=== PATIENT | female | born 1995 | race African-American/Black ===

== ENCOUNTER 2021-10-22 16:26 | Observation (INO) | payer BC, SELFPAY ==
--- NOTE | ~2021-10-22 | US_ITS ---
EXAMINATION: US pelvic complete w TV DATE: 10/22/2021 20:52 INDICATION: Right pelvic pain. Evaluate for torsion. Comparison:CT dated 10/22/2021 TECHNIQUE: Multiple transabdominal and endovaginal sonographic images of the pelvis performed. FINDINGS: The uterus measures 8.6 x 4.2 x 5 cm. The endometrial complex measures 1.4 cm. There is a large complicated cyst measuring up to 11 cm inferior and to the right of the uterus measu res an isoechoic structure measuring 3.9 x 3.8 x 3.4 cm with internal vascularity the left ovary is n ot visualized. There is fluid in the posterior cul-de-sac. Centered in the right adnexa corresponding to the cyst seen on CT examination. This cyst contains septations and low-level internal echoes. The re is vascularity surrounding the cyst, possibly ovarian. Its difficult to evaluate normal ovarian ti ssue due to the complicated cysts. IMPRESSION: 1. Large complex right adnexal cyst measuring up to 11 cm with vascularity peripheral to the cystic c omponent. Differential diagnosis includes large complicated functional cyst, complicated hydrosalpinx , cystadenoma and cystadenocarcinoma. Isoechoic mass inferior and right of the uterus measuring up to 3.9 cm contains vascularity. This is of uncertain significance and may represent the actual ovary if indeed the cystic component is a hydrosalpinx. No definite evidence for torsion. Reviewed, dictated and finalized at location A. E PROJECT MANAGER IMPRESSION: 1. Large complex right adnexal cyst measuring up to 11 cm with vascularity ivis pheral to the cystic component. Differential diagnosis includes large complicat ed functional cyst, complicated hydrosalpinx, cystadenoma and cystadenocarcinom a. Isoechoic mass inferior and right of the uterus measuring up to 3.9 cm conta ins vascularity. This is of uncertain significance and may represent the actual ovary if indeed the cystic component is a hydrosalpinx. No definite evidence f or torsion.
--- NOTE | ~2021-10-22 | CT_ITS ---
EXAMINATION: CT abdomen pelvis w con DATE: 10/22/2021 18:58 INDICATION: Abdomen pain TECHNIQUE: Computed tomography (CT) of the abdomen and pelvis was performed with 100 cc Omnipaque 350 intravenous contrast. The dose-length product was 498.09 mGy-cm. Automated exposure control and iter ative reconstruction technique were employed. COMPARISON: None. FINDINGS: Lung bases are unremarkable. Heart size normal. No significant pleural or pericardial effus ion. There are multiple small subcentimeter low-density lesions in the liver, most likely cysts. No s ignificant vascular abnormality. No lymphadenopathy. There is a large complex cyst centered in the right adnexa measuring 11.2 x 12.6 x 6.8 cm with sports management internship al septations. There is free fluid in the pelvis. There is fluid in the endometrium which is mildly t hickened. Nonobstructive bowel gas pattern. The spleen, pancreas, adrenal glands and kidneys are unremarkable. Gallbladder is present. No acute o sseous abnormality. IMPRESSION: 1. Large complex septated right adnexal cyst measuring 12.6 x 11.2 x 6.8 cm. Differential diagnosis i ncludes large functional cysts and cystadenoma/cystadenocarcinoma. Small amount of free fluid in the pelvis. Reviewed, dictated and finalized at location A. C EXECUTIVE IMPRESSION: 1. Large complex septated right adnexal cyst measuring 12.6 x 11.2 x 6.8 cm. Di fferential diagnosis includes large functional cysts and cystadenoma/cystadenoc arcinoma. Small amount of free fluid in the pelvis.
[2021-10-22 16:30] VITALS: BP 131/81; PULSE 92; RESP 20; TEMP 36.7; O2SAT 100
--- NOTE | 2021-10-22 16:40 | ED.GENADULT ---
HPI - General Adult General Chief complaint: Abdominal Pain Stated complaint: abd pain Time Seen by Provider: 10/22/21 16:30 Source: RN notes reviewed History of Present Illness HPI narrative: Patient presents emergency department from home for abdominal pain. Patient states abdominal pain began at noon today pain is located across the lower abdomen bilaterally described as cramping in nature associate with nausea vomiting and diarrhea. Patient denies any fevers or chills chest pain shortness of breath or any other symptoms. States she took ibuprofen at home with no relief Related Data Allergies Allergy/AdvReac Type Severity Reaction Status Date / Time No Known Allergies Allergy Verified 10/22/21 18:21 Review of Systems Review of Systems: Gen.: Denies fevers or chills ENT: Denies congestion Respiratory: Denies shortness of breath or cough CV: Denies chest pain or palpitations GI: See HPI denies burning, urgency, frequency or hematuria Musculoskeletal: Denies back pain or muscle pain Neuro: Denies numbness, tingling, weakness or focal weakness Skin: Denies rash Except as documented, all other systems reviewed and negative [facility] Past Medical History Medical History (Updated 10/22/21 @ 21:37 by Valeriano Marroquin DO) Patient denies significant medical history Social History Social History (Updated 10/22/21 @ 16:41 by Valeriano Marroquin DO) Smoking status: Never smoker Exam Narrative: APPEARANCE: No acute distress, nontoxic, resting in bed HEENT: Normocephalic, atraumatic, OMM RESPIRATORY: No respiratory distress, clear to auscultation bilaterally with no rhonchi wheezing or rales CARDIOVASCULAR: RRR s murmur ABDOMINAL: Soft nondistended tender palpation diffusely with increased tenderness in right lower quadrant left lower quadrant no rebound or guarding : Normal external exam small amount of white vaginal discharge cervix is closed right adnexal tenderness no left adnexal tenderness no cervical motion tenderness MUSCULOSKELETAl: Moves all extremities. No clubbing, cyanosis or edema. NEURO: Awake and alert. Following commands, speech normal, no focal deficits SKIN:: Warm, dry. Normal Color PSYCHIATRIC: Normal affect/mood Course Course Emergency Course: Called and discussed with Dr. Ca presentation work-up at this time recommends admission to her service request patient started on clindamycin and gentamicin for possible PID is concerned of hydrosalpinx with white blood cell count elevated Discussed with patient and family results of workup and diagnosis. Discussed need for admission. Patient and family understand and agree to current treatment plan Vital Signs Vital signs: Vital Signs Temperature 98.0 F 10/22/21 16:30 Pulse Rate 92 10/22/21 16:30 Respiratory Rate 20 10/22/21 16:30 Blood Pressure 131/81 10/22/21 16:30 Pulse Oximetry 100 10/22/21 16:30 Temperature 98.0 F 10/22/21 16:30 Pulse Rate 90 10/22/21 21:17 Respiratory Rate 14 10/22/21 21:17 Blood Pressure 128/77 10/22/21 21:17 Pulse Oximetry 99 10/22/21 21:17 Medical Decision Making Vital Signs Vital Signs: Vital Signs Temperature 98.0 F 10/22/21 16:30 Pulse Rate 92 10/22/21 16:30 Respiratory Rate 20 10/22/21 16:30 Blood Pressure 131/81 10/22/21 16:30 Pulse Oximetry 100 10/22/21 16:30 Temperature 98.0 F 10/22/21 16:30 Pulse Rate 90 10/22/21 21:17 Respiratory Rate 14 10/22/21 21:17 Blood Pressure 128/77 10/22/21 21:17 Pulse Oximetry 99 10/22/21 21:17 Lab Data Result diagrams: 10/22/21 17:16 10/22/21 17:16 Labs: Lab Results 10/22/21 10/22/21 10/22/21 Range/Units 17:16 17:16 17:55 WBC 21.8 H (4.5-10.0) K/mm3 RBC 4.86 (4.2-5.4) M/mm3 Hgb 11.4 L (12.0-15.0) g/dL Hct 36.7 L (37.0-47.0) % MCV 75.5 L (80-100) fl MCH 23.5 L (26-34) pg MCHC 31.1 L (32-36) g/dl RDW 16.5 H (11.5-14.5) % P
[2021-10-22] MEDS: ONDANSETRON INJ 4 MG/2 ML VIAL IV PUSH (17:12)
[2021-10-22] MEDS: SODIUM CHLORIDE 0.9% IV 1,000 ML 999 ML IV CONT (17:12)
[2021-10-22 17:22] LABS: Basophils Absolute Auto 0.1 K/mm3 (0.0-0.1); Basophils Percent Auto 0.3 % (0.2-1.2); Hematocrit 36.7 % (37.0-47.0); Hemoglobin 11.4 g/dL (12.0-15.0); Immature Granulocyte Absolute 0.12 K/mm3 (0.00-0.031); Immature Granulocyte Percent A 0.5 % (0-0.5); Lymphocytes Absolute Auto 0.79 K/mm3 (0.9-3.2); Lymphocytes Percent Auto 3.6 % (18.3-44.2); Mean Corpuscular HGB Conc 31.1 g/dl (32-36); Mean Corpuscular Hemoglobin 23.5 pg (26-34); Mean Corpuscular Volume 75.5 fl (80-100); Monocytes Absolute Auto 1.2 K/mm3 (0.1-0.6); Monocytes Percent Auto 5.3 % (2.6-8.5); Neutrophils Absolute Auto 19.7 K/mm3 (1.3-6.7); Neutrophils Percent Auto 90.3 % (45.5-73.1); Platelet Count Result 394 k/mm3 (150-375); Red Blood Count 4.86 M/mm3 (4.2-5.4); Red Cell Distribution Width 16.5 % (11.5-14.5); White Blood Count 21.8 K/mm3 (4.5-10.0)
[2021-10-22 17:32] LABS: Alanine Aminotransferase 16 U/L (4-35); Albumin Level 4.7 g/dL (3.5-5.1); Alkaline Phosphatase 62 U/L (38-126); Anion Gap 9 mmol/L (8-16); Aspartate Amino Transferase 26 U/L (14-36); Bilirubin,Total 0.4 mg/dL (0.2-1.3); Blood Urea Nitrogen 14 mg/dL (7-17); Calcium 9.8 mg/dL (8.4-10.2); Carbon Dioxide 28 mmol/L (22-30); Chloride 99 mmol/L (98-107); Estimated CRCL calculation 125 ml/min; Estimated Glomerular Filt Rate > 60; Glucose 152 mg/dL (65-110); Lipase 34 U/L (23-300); Potassium 3.7 mmol/L (3.4-5.0); Sodium 136 mmol/L (137-145)
[2021-10-22 18:07] LABS: Add Urine Microscopic? YES; Appearance Urine Cloudy (Clear); Bilirubin Urine Negative (Negative); Color Urine Yellow (Yellow); Glucose Urine UA Negative (Negative); Ketones Urine 1+ mg/dL (Negative); Leukocyte Esterase Ur Trace LEU/UL (Negative); Mucus Urine Heavy /lpf; Nitrate Urine Negative (Negative); Protein Urine 1+ mg/dL (Negative); RBC Urine 0-2 /hpf (0-2); Squamous Epithelial Cell Urine Many /hpf (Few); Urobilinogen Urine Negative mg/dL (<2.0); WBC Urine 16-20 /hpf
[2021-10-22 18:14] LABS: Pregnancy On Board Control Positive; Urine Pregnancy Test Negative
[2021-10-22 18:15] LABS: Blood Urine Negative (Negative); Specific Grav Ur 1.035 (1.001-1.035)
[2021-10-22] MEDS: MORPHINE SULFATE (*CRX) 2 MG/ML INJ IV PUSH (19:31)
[2021-10-22 19:34] VITALS: BP 133/78; PULSE 83; RESP 16; O2SAT 100
[2021-10-22 21:17] VITALS: BP 128/77; PULSE 90; RESP 14; O2SAT 99
[2021-10-22 21:45] LABS: Lactic Acid Reflex 1.3 mmol/L (0.7-2.1)
[2021-10-22] MEDS: GENTAMICIN SULFATE INJ 320 MG in DEXTROSE 5% 100 ML 100 MG IVPB (21:45)
--- NOTE | 2021-10-22 22:29 | ADMGEN ---
This patient, Atif Beasley, was admitted to Medical Room 255-01. Patient/family oriented to hospital policies and general routines including ID bracelet, bed and alarms, visiting hours, pain management, procedures, bathroom and other care routines, personal items, smoking policy, room service/diet, and visiting hours. Information on how to activate the Rapid Response Team has been discussed. Patient/Family are encouraged to report perceived risks to care and to ask questions if they do not understand what they are told or what they should do.
[2021-10-22 22:41] VITALS: PULSE 90; RESP 14; O2SAT 99
[2021-10-22] MEDS: CLINDAMYCIN 900 MG/D5W 50 ML 900 MG/50 ML PIGGYBACK 50 MG IVPB (22:43)
[2021-10-22] MEDS: MORPHINE SULFATE (*CRX) 4 MG/ML INJ IV PUSH (22:48)
[2021-10-22] MEDS: SODIUM CHLORIDE 0.9% IV 1,000 ML 125 ML IV CONT (22:48)
[2021-10-22 23:24] VITALS: BP 114/59; PULSE 100; RESP 14; TEMP 36.3; O2SAT 100
[2021-10-23] MEDS: CLINDAMYCIN 900 MG/D5W 50 ML 900 MG/50 ML PIGGYBACK 50 MG IVPB ×3 (05:32→21:24)
[2021-10-23 05:55] VITALS: BP 104/50; PULSE 104; RESP 14; TEMP 36.4; O2SAT 99
[2021-10-23 06:01] LABS: Basophils Percent Auto 0.2 % (0.2-1.2); Hematocrit 30.8 % (37.0-47.0); Hemoglobin 9.6 g/dL (12.0-15.0); Immature Granulocyte Absolute 0.13 K/mm3 (0.00-0.031); Immature Granulocyte Percent A 0.7 % (0-0.5); Lymphocytes Absolute Auto 1.37 K/mm3 (0.9-3.2); Lymphocytes Percent Auto 7.4 % (18.3-44.2); Mean Corpuscular HGB Conc 31.2 g/dl (32-36); Mean Corpuscular Volume 73.7 fl (80-100); Mean Platelet Volume 10.7 fl (7.4-10.4); Monocytes Absolute Auto 1.5 K/mm3 (0.1-0.6); Monocytes Percent Auto 7.8 % (2.6-8.5); Neutrophils Absolute Auto 15.6 K/mm3 (1.3-6.7); Neutrophils Percent Auto 83.9 % (45.5-73.1); Platelet Count Result 369 k/mm3 (150-375); Red Blood Count 4.18 M/mm3 (4.2-5.4); Red Cell Distribution Width 16.8 % (11.5-14.5); White Blood Count 18.6 K/mm3 (4.5-10.0)
[2021-10-23 06:07] LABS: Alanine Aminotransferase 13 U/L (4-35); Albumin Level 3.8 g/dL (3.5-5.1); Alkaline Phosphatase 45 U/L (38-126); Anion Gap 5 mmol/L (8-16); Aspartate Amino Transferase 20 U/L (14-36); Bilirubin,Total 0.5 mg/dL (0.2-1.3); Blood Urea Nitrogen 10 mg/dL (7-17); Calcium 8.5 mg/dL (8.4-10.2); Carbon Dioxide 27 mmol/L (22-30); Chloride 102 mmol/L (98-107); Estimated CRCL calculation 125 ml/min; Estimated Glomerular Filt Rate > 60; Glucose 111 mg/dL (65-110); Potassium 3.6 mmol/L (3.4-5.0); Sodium 134 mmol/L (137-145)
[2021-10-23] MEDS: MORPHINE SULFATE (*CRX) 4 MG/ML INJ IV PUSH ×2 (06:27→12:31)
[2021-10-23] MEDS: SODIUM CHLORIDE 0.9% IV 1,000 ML 125 ML IV CONT ×2 (07:50→17:02)
--- NOTE | 2021-10-23 09:24 | PM.IMHP ---
H&P: HPI History of Present Illness Date/Time: 10/23/21 09:24 26 y/o G1 LMP 10/07/2021 came to ER yesterday evening for c/o severely worsening pelvic pain in LLQ. She reports 2 year h/o pelvic pain, usually in RLQ, lasting 1-2 days after each menstrual cycle then resolves. That pain is mild to moderate. The pain yesterday was much more severe than anything she's ever experienced and is constant. She had nausea yesterday and emesis three times. She had Thanksgiving dinner with her family and did nothing strenuous yesterday. She has periods Q3-4 weeks lasting 5-7 days. She has one partner and uses condoms for contraception. She denies any h/o STDs or abnormal pap Med Hx: acne Meds: spironolactone and doxycycline for acne All: sulfa Surg: sty from eye Soc: no T/E/D, works as nurse at [employer] Ob: G0 Marketing Intelligence Analyst: denies abnormal pap (only had one ever) or STD Chief Complaint: pelvic pain Review of Systems Review of Systems: All systems reviewed & are unremarkable except as noted in HPI and below PMFSH Past Medical History Medical History (Updated 10/23/21 @ 09:33 by Kesha Ca MD) Patient denies significant medical history Family History Family History (Updated 10/22/21 @ 22:33 by Elizabeth Reyes RN) Other Unknown family medical history Social History Social History (Updated 10/22/21 @ 16:41 by Valeriano Marroquin DO) Smoking status: Never smoker Alcohol intake: never Substance use: never Spiritual care concerns: No Meds Home Medications and Allergies Home Medications Medication Instructions Recorded Confirmed Type spironolactone 100 mg PO DAILY 10/22/21 10/22/21 History Allergies Allergy/AdvReac Type Severity Reaction Status Date / Time Sulfa (Sulfonamide Allergy Unknown Unknown Verified 10/22/21 23:02 Antibiotics) Vital Signs Vital Signs - 24 hr 10/22/21 16:30 10/22/21 19:34 10/22/21 21:17 Temperature 36.7 C Pulse Rate 92 83 90 Respiratory Rate 20 16 14 Blood Pressure 131/81 133/78 128/77 Pulse Oximetry 100 100 99 10/22/21 22:41 10/22/21 23:24 10/23/21 05:55 Temperature 36.3 C L 36.4 C L Pulse Rate 90 100 104 H Respiratory Rate 14 14 14 Blood Pressure 114/59 L 104/50 L Pulse Oximetry 99 100 99 Exam Const: General: healthy appearing, no acute distress, well developed, alert and awake Resp: Auscultation: clear to auscultation bilaterally Cardio: Rate: regular rate Rhythm: regular rhythm GI: Inspection: non-distended GI Palp: Yes Soft to palpation, Yes Tenderness to palpation present (GI) (diffuse below umbilicus, LLQ worst. No guarding), No Palpable mass present (no palpable mass) and No Rebound tenderness present Auscultation: normal bowel sounds Back/Spine/Pelvis: Back: no CVA tenderness Extrem: General: no calf tenderness and no edema Psych: Mental Status: mental status grossly normal H&P: Results Labs Labs: Short CBC 10/22/21 10/23/21 Range/Units 17:16 05:24 WBC 21.8 H 18.6 H (4.5-10.0) K/mm3 Hgb 11.4 L 9.6 L (12.0-15.0) g/dL Hct 36.7 L 30.8 L (37.0-47.0) % Plt Count 394 H 369 (150-375) k/mm3 BMP 10/22/21 10/23/21 17:16 05:24 Sodium 136 L 134 L Potassium 3.7 3.6 Chloride 99 102 Carbon Dioxide 28 27 BUN 14 10 Creatinine 0.60 L 0.60 L Glucose 152 H 111 H Calcium 9.8 8.5 Liver Function 10/22/21 10/23/21 Range/Units 17:16 05:24 Total Bilirubin 0.4 0.5 (0.2-1.3) mg/dL AST 26 20 (14-36) U/L ALT 16 13 (4-35) U/L Alkaline Phosphatase 62 45 (38-126) U/L Albumin 4.7 3.8 (3.5-5.1) g/dL Urine 10/22/21 Range/Units 17:55 Urine Color Yellow (Yellow) Urine Appearance Cloudy H (Clear) Urine pH 5.0 (5.0-9.0) Ur Specific [place] 1.035 (1.001-1.035) Urine Protein 1+ H (Negative) mg/dL Urine Glucose (UA) Negative (Negative) mg/dL Assessment and Plan Assessment and plan (1) Acute pelvic inflammatory disease (PID): Code
[2021-10-23] MEDS: HYDROcodone/acetaminophen (*CRX) 5-325 MG TABLET 2 TAB PO ×2 (09:41→19:55)
[2021-10-23 10:03] LABS: Gentamicin Random < 0.6 ug/mL (5.0-12.0)
--- NOTE | 2021-10-23 10:34 | PCCCNOTE ---
On 10/23/21, the student, [Aziza Monteiro ], provided care and [email or web address]. I have reviewed the student's documentation and agree with the findings.
[2021-10-23 14:29] VITALS: BP 121/65; PULSE 91; RESP 20; TEMP 36.3; O2SAT 10
[2021-10-23] MEDS: HYDROcodone/acetaminophen (*CRX) 5-325 MG TABLET 1 TAB PO (16:00)
[2021-10-23] MEDS: GENTAMICIN SULFATE INJ 320 MG in DEXTROSE 5% 100 ML 100 MG IVPB (19:56)
[2021-10-23 21:28] VITALS: BP 129/61; PULSE 100; RESP 14; TEMP 36.6; O2SAT 96
[2021-10-24] MEDS: SODIUM CHLORIDE 0.9% IV 1,000 ML 125 ML IV CONT (02:56)
[2021-10-24] MEDS: HYDROcodone/acetaminophen (*CRX) 5-325 MG TABLET 2 TAB PO (02:57)
[2021-10-24] MEDS: CLINDAMYCIN 900 MG/D5W 50 ML 900 MG/50 ML PIGGYBACK 50 MG IVPB (05:02)
[2021-10-24 06:00] VITALS: BP 124/57; PULSE 100; RESP 14; TEMP 36.8; O2SAT 97
--- NOTE | 2021-10-24 10:11 | PM.GYNPNOP ---
ANCHORER - A/P Assessment and plan (1) Acute pelvic inflammatory disease (PID): Code(s): N73.0 - Acute parametritis and pelvic cellulitis Status: Acute Assessment and Plan: Clinically improving on IV antibiotics and would like to go home. Discharge home with another 12 days oral antibiotics. Follow up in the office with me within 1 week. Stay off work until then. I advised her to call if fever >101, N/V to the point she cannot keep down medications, worsening pain, or any other concerning symptoms. She expressed understanding and agrees. (2) TOA (tubo-ovarian abscess): Code(s): N70.93 - Salpingitis and oophoritis, unspecified Status: Acute (3) UTI (urinary tract infection): Code(s): N39.0 - Urinary tract infection, site not specified Status: Acute Assessment and Plan: + UTI Group B streptococcus, which is generally sensitive to amoxicillin so will add that to discharge antibiotics Time Spent With Patient Time: Total time spent is greater than 50% in coordination of care (as documented) at patient's floor/unit and/or counseling patient: Time with patient: 15 - 25 minutes ANCHORER- PN:Subj Post-Op Subjective Date/time seen: 10/24/21 10:11 She is feeling much better today. Tolerating regular diet and oral pain medication, which is helping. Pain hs improved. No N/V. No new complaints. No CP, SOB, dizziness. Review of Systems Review of Systems: All systems reviewed & are unremarkable except as noted in HPI and below Exam Const: General: healthy appearing, no acute distress, alert and awake Resp: Auscultation: clear to auscultation bilaterally Cardio: Rate: regular rate Rhythm: regular rhythm GI: Inspection: non-distended GI Palp: Yes Soft to palpation, Yes Tenderness to palpation present (GI) (below umbilicus, L>R but slightly less than yesterday), No Guarding due to palpation present (GI) and No Rebound tenderness present Auscultation: normal bowel sounds Extrem: General: no calf tenderness and no edema Psych: Mental Status: mental status grossly normal ANCHORER - PN: Obj Data Vital Signs Vital Signs: Vital Signs - 24 hr 10/23/21 14:29 10/23/21 21:28 10/24/21 06:00 Temperature 36.3 C L 36.6 C 36.8 C Pulse Rate 91 100 100 Respiratory Rate 20 14 14 Blood Pressure 121/65 129/61 124/57 L Pulse Oximetry 10 L 96 97 Intake/Output Intake/Output: Intake & Output 10/21/21 10/22/21 10/23/21 10/24/21 23:59 23:59 23:59 23:59 Intake Total 1100 2416 1050 Output Total 450 1000 Balance 1100 1966 50 Meds/Results Medications: Active Medications Generic Name Dose Route Start Last Admin Trade Name Freq PRN Reason Stop Dose Admin Hydrocodone Bitart/Acetaminophen 1 tab 10/23/21 09:34 10/23/21 16:00 Hydrocodone/Acetaminophen (*Crx) 5-325 Mg Tablet PO 1 tab Q4H PRN Administration Pain Rated 4-6 Hydrocodone Bitart/Acetaminophen 2 tab 10/23/21 09:34 10/24/21 02:57 Hydrocodone/Acetaminophen (*Crx) 5-325 Mg Tablet PO 2 tab Q4H PRN Administration Pain Rated 7-10 Sodium Chloride 1,000 mls @ 125 mls/hr 10/22/21 21:20 10/24/21 02:56 Normal Saline Iv IV CONT 125 mls/hr .Q8H ANGEL Administration Clindamycin Phosphate 900 mg in 50 mls @ 50 mls/hr 10/23/21 06:00 10/24/21 06:02 Cleocin 900 Mg/D5w 50 Ml IVPB Infused Q8H ANGEL Infusion Gentamicin Sulfate 320 mg/ 108 mls @ 100 mls/hr 10/23/21 21:00 10/23/21 21:01 Dextrose IVPB Infused Q24H ANGEL Infusion Ibuprofen 600 mg 10/23/21 09:34 Ibuprofen 600 Mg Tablet PO Q6H PRN Cramping Morphine Sulfate 4 mg 10/22/21 21:16 10/23/21 12:31 Morphine Sulfate (*Crx) 4 Mg/Ml Inj IV PUSH 4 mg Q2H PRN Administration Pain Rated 7-10 Ondansetron HCl 4 mg 10/22/21 21:16 Ondansetron Inj 4 Mg/2 Ml Vial IV PUSH Q4H PRN Nausea Radiology Results: ITS Impressions Abdomen/Pelvis CT 10/22/21 19:00 IMPRESSION: 1. Large complex septated ri
--- NOTE | 2021-10-24 10:16 | PM.DS ---
DS: Admitting Diagnosis Discharge Date 10/24/2021 Admitting Diagnosis PID, adnexal mass, pelvic pain DS: Discharge Diagnosis Discharge Diagnosis (1) Acute pelvic inflammatory disease (PID): Code(s): N73.0 - Acute parametritis and pelvic cellulitis Status: Acute (2) TOA (tubo-ovarian abscess): Code(s): N70.93 - Salpingitis and oophoritis, unspecified Status: Acute (3) UTI (urinary tract infection): Code(s): N39.0 - Urinary tract infection, site not specified Status: Acute (4) Pelvic pain: Code(s): R10.2 - Pelvic and perineal pain Status: Acute DS: Summary Hospital Course Reason for hospitalization: pelvic pain, adnexal mass, PID Hospital Course: Patient is 26 years old G0 with last menstrual period of October 07, 2021 came to the emergency room the evening of October 22 complaining of severely worsening lower abdominal pain. She initially had a CT scan and pelvic ultrasound showing a large right adnexal mass complex cystic and pleural, possibly hydrosalpinx versus ovarian in origin. She also had an elevated white blood cell count. She was admitted for suspected PID and treated with IV gentamicin and clindamycin starting on the evening of October 22. She was feeling somewhat better on October 23. She had been kept NPO overnight on the with potential plan for surgical management. The patient and I agreed to Willy continue medical therapy and observation. So she was allowed to eat and switched over to oral pain medication on October 23. She is feeling better on the morning of October 24. She is tolerating regular diet as well as oral pain medication. Her pain has improved and is well controlled on oral ibuprofen and [place]. She has remained afebrile throughout her hospital stay. Her vital signs are otherwise normal. She is being discharged home with plan to follow up with me with in office within the next week and to stay off work until she sees me back. We will plan to complete a 14 day course of oral antibiotics for PID as well as a course of amoxicillin for a UTI based on urine culture that grew group B Streptococcus here in the hospital. Status at Discharge Functional status at discharge: independent ambulation Overall status at discharge: patient is progressing back to baseline Time Spent with Patient Time attestation: Total time spent providing and/or coordinating discharge services: Time spent: Less than 30 minutes DS: Data Data Completed and Pending Labs on day of discharge: Preliminary micro results at discharge 10/22/21 21:29 Blood Culture - Preliminary Blood 10/22/21 21:29 Blood Culture - Preliminary Blood Discharge Plan Discharge Attending physician on discharge: Kesha Ca Discharging Clinician: Kesha Ca Patient Disposition: Home, Self-Care Activity: may shower and pelvic rest Diet: as tolerated Patient Instructions: Antibiotic Form Stand Alone Forms: General Discharge Information, Work/School Release IP Follow-up/Referrals: Kesha Ca MD [Physician] - 1 Week Discharge Medications: New hydrocodone-acetaminophen 5-325 mg Tablet 1 tablet PO Q4H PRN (Reason: Pain Rated 4-6) Qty: 30 RF: 0 amoxicillin 500 mg capsule 500 mg PO Q12H Qty: 14 RF: 0 doxycycline hyclate 100 mg capsule 100 mg PO Q12H Qty: 24 RF: 0 metronidazole 500 mg tablet 500 mg PO Q12H Qty: 24 RF: 0 ibuprofen 600 mg tablet 600 mg PO Q6H PRN (Reason: pain) Qty: 60 RF: 0 Continued spironolactone 100 mg Tablet 100 mg PO DAILY RF: 0 Date of admission: 10/22/21 21:16 Primary Care Provider: PHYSICIAN,BRICKMASON CONTRACTOR Admitting Provider: Kesha Ca Attending physician on admission: Kesha Ca Condition: Stable
== END 2021-10-24 13:18 | disposition home or self-care (01) ==
LOC: ANHED 21:37 → ANH2MED 21:49
PROVIDERS: Admitting Provider Obstetrics & Gynecology; Emergency Provider Emergency Medicine; Visit Provider Obstetrics & Gynecology
DX: N73.0 Acute parametritis and pelvic cellulitis (principal); N70.93 Salpingitis and oophoritis, unspecified; N39.0 Urinary tract infection, site not specified; R10.2 Pelvic and perineal pain
CPT/HCPCS: 36415; 74177; 76830; 76856; 80053; 80170; 81001; 81025; 83605; 83690; 85025; 87040; 87070; 87077; 87086; 87088; 87491; 87591; 87808; 96361; 96365; 96366; 96367; 96368; 96375; 96376; 99285; A9270; G0378; J0131; J1580; J2270; J2405; J7030; Q9967

== ENCOUNTER 2021-10-29 11:21 | Outpatient (CLI) | payer BC, SELFPAY ==
[2021-10-29 21:01] LABS: HIV 1/2 Ab P24 Ag Result Negative (Negative)
[2021-10-29 21:07] LABS: Hepatitis B Surface Antigen Negative (Negative)
[2021-10-29 21:08] LABS: Hepatitis C Virus Antibody Negative (Negative)
[2021-10-29 21:22] LABS: Rubella IgG Antibody > 110.0 IU/ML
[2021-10-30 06:39] LABS: Rapid Plasma Reagin Non-Reactive (NonReactive)
== END 2021-10-29 11:22 | disposition home or self-care (01) ==
LOC: ANHBWCLAB 11:23
PROVIDERS: Visit Provider Obstetrics & Gynecology
DX: Z11.3 Encounter for screening for infections with a predominantly sexual mode of transmission (principal)
CPT/HCPCS: 36415; 86592; 86695; 86696; 86703; 86762; 86803; 87340; G0432

== ENCOUNTER 2021-12-08 10:16 | Outpatient (CLI) | payer BC, SELFPAY ==
--- NOTE | ~2021-12-08 | US_ITS ---
EXAMINATION: US pelvic complete w TV EXAM DATE: 12/08/2021 11:20 INDICATION: Follow up abdominal pain TECHNIQUE: Pelvic transabdominal and transvaginal sonogram was performed. There are multiple graysca le and Doppler images available for interpretation. Comparison is made to prior examination from 09/29. FINDINGS: Uterus measures 8.6 x 4.7 x 4.2 cm, is anteverted and morphologically normal. Endometrial stripe measures 17 mm, upper limits of normal. There is small to moderate free pelvic fluid. Right adnexa: Again there is complex cystic right ovarian mass, region 11 cm. Low-level hypoechoic fl uid. Mass is exophytically extending off the right ovary. Low resistance Doppler flow is confirmed, n o right ovarian torsion. Left adnexa: The ovary measures 3.0 x 1.6 x 1.2 cm and is morphologically normal. Ovarian vascular fl ow confirmed. IMPRESSION: Complex cystic right ovarian 12 cm mass unchanged, with differential diagnosis including endometrioma, cystic ovarian neoplasm (including malignancy). Small to moderate pelvic fluid. Conside r histologic correlation. Reviewed, dictated and finalized at location A. NING CUSTODIAN IMPRESSION: Complex cystic right ovarian 12 cm mass unchanged, with differentia l diagnosis including endometrioma, cystic ovarian neoplasm (including malignan cy). Small to moderate pelvic fluid. Consider histologic correlation.
== END 2021-12-08 10:17 | disposition home or self-care (01) ==
PROVIDERS: Visit Provider Obstetrics & Gynecology
DX: R10.9 Unspecified abdominal pain (principal); Z11.3 Encounter for screening for infections with a predominantly sexual mode of transmission; N83.201 Unspecified ovarian cyst, right side
CPT/HCPCS: 76830; 76856

== ENCOUNTER 2021-12-09 08:36 | Outpatient (CLI) | payer BC, SELFPAY ==
[2021-12-12 01:30] LABS: CA-125 26 U/mL (<35)
== END 2021-12-09 08:37 | disposition home or self-care (01) ==
LOC: ANHBWCLAB 08:38
PROVIDERS: Visit Provider Obstetrics & Gynecology
DX: N83.8 Other noninflammatory disorders of ovary, fallopian tube and broad ligament (principal)
CPT/HCPCS: 36415; 86304

== ENCOUNTER 2021-12-18 16:24 | Emergency (ER) | payer BC, SELFPAY ==
[2021-12-18 16:33] VITALS: BP 120/65; PULSE 103; RESP 16; TEMP 36.2; O2SAT 99
--- NOTE | 2021-12-18 16:41 | ED.URI ---
HPI - URI/Sore Throat General Chief Complaint: Upper Respiratory Infection Stated Complaint: SORE THROAT Time Seen by Provider: 12/18/21 16:41 Source: patient, RN notes reviewed and old records reviewed Mode of arrival: ambulatory Limitations: no limitations History of Present Illness HPI Narrative: 26 year old female who presents to [facility] care with complaints of white lesions to her tonsils for the past 2 days with some tenderness to her glands in her neck. Patient denies acute pain with swallowing but states that she feels like her tonsils are swollen. Patient denies any cough or any known fevers chills or sweats, reports that she has had COVID and flu immunizations. She states that she is able to eat and drink with no acute problems. MD elicited complaint: sore throat Related Data Home Medications Medication Instructions Recorded Confirmed spironolactone 100 mg PO DAILY 10/22/21 12/15/21 Allergies Allergy/AdvReac Type Severity Reaction Status Date / Time Sulfa (Sulfonamide Allergy Unknown Rash, Verified 12/15/21 10:28 Antibiotics) swelling Review of Systems Review of Systems: CONSTITUTIONAL: Denies fever, chills, or sweats. EYES: Denies visual changes, redness, or discharge. ENT: Denies rhinorrhea, congestion, positive for swollen tonsils with lesions, no otalgia. CARDIOVASCULAR: Denies chest pain, palpitations, or edema. RESPIRATORY: Denies cough or dyspnea. GASTROINTESTINAL: Denies abdominal pain, nausea, vomiting, or diarrhea. GENITOURINARY: Denies dysuria or hematuria. SKIN: Denies rash or itching. MUSCULOSKELETAL: Denies back pain, joint pain, or myalgia. NEUROLOGIC: Denies headache, numbness, or weakness. PSYCHIATRIC: Denies anxiety or depression. All systems reviewed & are unremarkable except as noted in HPI and below PMFSH Past Medical History Medical History (Updated 12/18/21 @ 16:57 by Jovanna Pan NP) Acne Acute pelvic inflammatory disease (PID) Hydrosalpinx Pelvic pain Right ovarian cyst TOA (tubo-ovarian abscess) Surgical History Surgical History No pertinent past surgical history Family History Family History Father Hypertension Mother Hypertension Anxiety and depression Heart disease Grandparent Anxiety and depression Heart disease Cerebrovascular accident Thyroid disorder Grandparent Hypertension Thyroid disorder Social History Social History Smoking status: Never smoker Alcohol intake: never Substance use: never Spiritual care concerns: No Agree to blood products: Yes Comments At time of signature, agree with nursing past medical, surgical, social and family history. There is no relevant family history pertinent to the presenting complaint Exam Narrative: GENERAL: Well-appearing, well-nourished, and in no acute distress. HEAD: Normocephalic, atraumatic. EYES: PERRLA and EOMI. ENT: Nares clear, no rhinorrhea or epistaxis. Mucous membranes moist.TM's normal with good light reflex, throat red with tonsils enlarged and white lesions to both tonsils NECK: Supple. positive for lymphadenopathy CHEST: Clear to auscultation. No respiratory distress. no cough or dyspnea notedSAO2 99% on room air. HEART: Regular rate and rhythm. No murmur heard. Normal peripheral pulses. ABDOMEN: Soft, nontender, nondistended, normal active bowel sounds. EXTREMITIES: Normal range of motion. No edema. SKIN: Warm, dry, no rash. NEURO: No focal deficits. Alert and oriented x3. Course Course Level of Care: Express Care Visit Vital Signs Vital signs: Vital Signs Temperature 36.2 C L 12/18/21 16:33 Pulse Rate 103 H 12/18/21 16:33 Respiratory Rate 16 12/18/21 16:33 Blood Pressure 120/65 12/18/21 16:33 Pulse Oximetry 99 12/18/21 16:33 Temperature 36.2 C L 12/18/21 16:33 Pulse Rate 103
== END 2021-12-18 17:06 | disposition home or self-care (01) ==
PROVIDERS: Emergency Provider Registered Nurse
DX: J03.90 Acute tonsillitis, unspecified (principal)
CPT/HCPCS: 87081; 87880; 99213; G0463

== ENCOUNTER 2022-01-21 07:50 | Outpatient (CLI) | payer BC, SELFPAY | END 2022-01-21 07:51 | disposition home or self-care (01) | LOC: ANHSURGERY 07:54 | PROVIDERS: Visit Provider Obstetrics & Gynecology | DX: N94.89 Other specified conditions associated with female genital organs and menstrual cycle (principal); Z01.818 Encounter for other preprocedural examination | CPT/HCPCS: 36415; 86850; 86900; 86901 ==

== ENCOUNTER 2022-01-25 00:30 | Day surgery (SDC) | payer BC, SELFPAY ==
[2022-01-20 09:15] VITALS: BMI 30.2
--- NOTE | 2022-01-20 09:24 | PC.NURSE ---
Report to the Outpatient Waiting Room, entrance under the green pavilion located off [facility], at time 10:00 on date 01/25/22. OR Time: 12:00. - You and your visitor will be asked a series of questions to screen for COVID 19 for your protection. - A mask is required within the hospital. One visitor will be allowed to accompany the patient into the hospital. Patients visitor will be instructed to remain with patient at all times or leave the building. We will allow the visitor to come back to the postoperative area when patient is ready. Preoperative COVID Testing Requirements: No COVID Test needed if: (proof is required; if not received patient will have Rapid Test prior to entry) - Patient has received COVID Vaccine at least 14 days prior to procedure date or - Patient has positive COVID test result within last 90 days of surgery date. COVID Test needed if above criteria is not met Patients may have clear liquids (water, carbonated beverages, clear teas, apple juice) until 3 hours prior to surgery (9:00) with a maximum of 20 ounces. - No food from midnight until time of surgery Take the following medications with a SIP of water the morning of surgery: NONE Medications to discontinue per physician: VITAMINS/SUPPLEMENTS Date to take last dose: 01/21/22 Please no make-up, nail rwandan, hairspray, perfume, deodorant, or body powder the day of surgery. No jewelry (including any body piercings) or valuables the day of surgery, leave them at home. Please take a shower or bath the night before, or the morning of, surgery with an antibacterial soap. Wear comfortable, loose fitting clothing. - Jewelry must be removed prior to entering the operating room. Rings and piercings that are not removed may be cut off. - The hospital will not accept responsibility for valuables. - Please leave all valuables, including medications, at home the day of surgery. If you are going home after surgery, a licensed driver license reviewing officer must drive you home. - NO public transportation without another adult. - We recommend that an adult stay with you for 24 hours following discharge. - We also recommend that you do not drive, make important decision, drink alcoholic beverages, or take any drugs that were not prescribed by your health care provider for at least 24 hours after your discharge time. Follow any additional instructions given to you from your surgeon. Telephone instructions given to ROGELIO MCLAIN and asked if any additional questions and then verbalized understanding. Patient advised to call surgeon office or pre surgery nurse liaison [phone] if any additional questions.
[2022-01-25] VITALS (8 sets, daily range): BP systolic 101–123; BP diastolic 56–83; PULSE 57–84; RESP 14–16; TEMP 36.1; O2SAT 93–100
--- NOTE | 2022-01-25 09:05 | P.HP_ITS ---
H&P: HPI History of Present Illness Date/Time: 01/25/22 09:05 27 y/o with persistent large right adnexal cystic m ass. She was admitted 10/22 - 10/24/2021 for pain and antibiotics for possible TOA/PID. Mass did not improve with repeat U/S. She has intermitten RLQ pain for which she takes Advil. She has monthly cycles with no unusual discharge or new partner. Chief Complaint: Right adnexal mass, pelvic pain Review of Systems Review of Systems: All systems reviewed & are unremarkable except as noted in HPI and below PMFSH Past Medical History Medical History Acne Acute pelvic inflammatory disease (PID) Hydrosalpinx Right ovarian cyst TOA (tubo-ovarian abscess) Surgical History Surgical History No pertinent past surgical history Family History Family History Father Hypertension Mother Hypertension Anxiety and depression Heart disease Grandparent Anxiety and depression Heart disease Cerebrovascular accident Thyroid disorder Grandparent Hypertension Thyroid disorder Social History Social History Smoking status: Never smoker Alcohol intake: never Substance use: never Substance use type: does not use Living arrangements: with family Spiritual care concerns: No Agree to blood products: Yes Meds Home Medications and Allergies Home Medications Medication Instructions Recorded Confirmed Type spironolactone 100 mg PO DAILY 10/22/21 01/20/22 History multivitamin 1 tablet PO DAILY 01/20/22 01/20/22 History Allergies Allergy/AdvReac Type Severity Reaction Status Date / Time Sulfa (Sulfonamide Allergy Unknown Rash, Verified 01/12/22 08:55 Antibiotics) swelling Exam Const: General: healthy appearing, no acute distress, alert and awake Resp: Auscultation: clear to auscultation bilaterally Cardio: Rate: regular rate Rhythm: regular rhythm GI: Inspection: non-distended GI Palp: Yes abdominal tenderness (RLQ), Yes Soft to palpation, No Tenderness to palpation present (GI), No Guarding due to palpation present (GI) and No Rebound tenderness present : Bimanual exam- vagina & uterus: uterine size normal, uterine mobility normal, non-tender and soft Bimanual Exam- Adnexa, other: tender on the right and Adnexal mass present on the right Extrem: General: no pedal edema and no calf tenderness Psych: Mental Status: mental status grossly normal Assessment and Plan Assessment and plan (1) Adnexal mass: Code(s): N94.89 - Other specified conditions associated with female genital organs and menstrual cycle Status: Acute Assessment and Plan: She signed consent for diagnostic laparoscopy, possible laparotomy, removal of right adexal mass, possible right oophorectomy and/or salpingectomy after risks, benefits, complications, and alternatives discussed. She expressed understanding and wishes to proceed. (2) Pelvic pain: Code(s): R10.2 - Pelvic and perineal pain Status: Acute
[2022-01-25] MEDS: ACETAMINOPHEN 500 MG TABLET 1000 MG PO (10:35)
[2022-01-25] MEDS: LACTATED RINGERS 1,000 ML 30 ML IV CONT ×2 (10:55→14:37)
[2022-01-25] MEDS: KETOROLAC 15 MG/ML VIAL (*BKC) IV PUSH (10:55)
--- NOTE | 2022-01-25 11:41 | WPDHPUPDATE1 ---
History and Physical Update Update Date/Time: 01/25/22 11:41 History and Physical has been reviewed, including an updated exam of the patient. There are NO changes in the patient's condition. Risks, benefits, and alternatives have been discussed and questions answered. Patient agrees to proceed with procedure.
--- NOTE | 2022-01-25 11:54 | W.PM.PROC2 ---
Procedure Note - Detailed Date of Procedure 01/25/22 Pre-op Diagnosis large right adnexal mass, pelvic pain Post-op Diagnosis same Procedure Performed Laparoscopic right oophorectomy and extensive lysis of adhesions Surgeon Kesha Ca MD Anesthesia general Indications Large right cystic adnexal mass, pelvic pain Findings Massively enlarged right ovary with multiple cystic areas filled with chocolate fluid, stretched but otherwise normal right fallopian tube; normal left tube/ovary, uterus, appendix, liver, gall bladder; extensive adhesions of right ovary to uterus, left ovary, and right pelvic sidewall Description of Procedure She was taken to the operating room where general anesthesia was obtained. She was prepared and draped in the normal sterile fashion in the dorsal lithotomy position. Marcaine was injected infraumbilically. 5 mm skin incision was made in the infraumbilical fold. 5 mm non bladed trocar was placed with the camera in the trocar under direct visualization into the peritoneal cavity. Insufflation was begun. She was placed in Trendelenburg. Another 5 mm trocar was placed in the right lower quadrant under direct visualization. Inspection of the pelvis revealed the findings as noted above. Although there were multiple adhesions noted, decision was made to attempt to do as much of the procedure laparoscopically as possible. An 11 mm trocar was then placed in midline suprapubic area under direct visualization. The Harmonic scalpel was made ready. First adhesions between the uterus and enlarged right ovary were taken down using the Harmonic scalpel. Then attention was turned to the backside of the ovary which was adherent to the cul-de-sac and both paraovarian fossa. Slowly, adhesions were removed between the ovary and all the surrounding structures. The right fallopian tube looked normal other than being stretched slightly, so decision was made to leave it in place. The the right fallopian tube was grasped. The mesosalpinx was serially clamped and transected using the Harmonic scalpel. The utero-ovarian ligament was then divided using the Harmonic scalpel. The right infundibulopelvic ligament was grasped, coagulated, and transected with excellent hemostasis visualized. There were still some adhesions between the right ovary and the right pelvic sidewall and right periovarian fossa. While traction was being applied to the right ovary for visualization, the cyst ruptured with copious amount of chocolate appearing fluid coming from inside the cyst. Once lysis of adhesions but had been accomplished in order to free the right ovary from all surrounding tissue, the right ovary was placed in the left upper quadrant. The pelvis was copiously irrigated. All operative sites were inspected. Any bleeding points were easily cauterized using the Harmonic scalpel. An endo-pouch was placed on the suprapubic trocar, and the right of ovary was placed inside the pouch. The pouch would not fit out the incision at the size it had been initially made, so the incision was extended with the scalpel on the skin and with the Wahl scissors on the fascia. The endo-pouch was then brought easily through the suprapubic incision. The suprapubic trocar was replaced. The pelvis was once again irrigated and inspected with excellent hemostasis visualized. The pneumoperitoneum was allowed to escape. Trocars were removed. The fascia of the suprapubic incision was closed using 0 Vicryl in a running fashion. The subcutaneous tissue of that incision was closed using 2-0 Vicryl interrupted [id number] sutures. All 3 skin incisions were closed using 4-0 Monocryl in subcuticular fashion. She tolerated the procedure well. Sponge, lap, needle, and instrument counts were correct x2. She was taken to the recovery room in stable condition. Estimated Blood Loss 50 Drains No Packing No Pathology yes Complications No immediate complications Condition stable
--- NOTE | 2022-01-25 11:58 | WPDANESEPPF ---
Anes - Initial Pre Proc Eval Procedure: Operation Date: 01/25/22 12:00 Proposed Procedures p Diagnostic Laparoscopy, with Possible Open Laparotomy Removal of Adnexal Mass, Possible Right Oophorectomy and/or Possible Right Salpingectomy - Kesha Ca MD Date/Time: 01/25/22 11:58 Surgeon: Kesha Ca MD Pre Op Diagnosis: large right adnexal mass, pelvic pain Patient Data Age: 27 Gender: F Height: 1.64 m Weight: 84.8 kg Last Vital Signs Temp 36.1 C L 01/25/22 10:29 Pulse 84 01/25/22 10:29 Resp 16 01/25/22 10:29 BP 123/83 01/25/22 10:29 Pulse Ox 100 01/25/22 10:29 Allergies Allergy/AdvReac Type Severity Reaction Status Date / Time Sulfa (Sulfonamide Allergy Intermediate Rash, Verified 01/25/22 10:33 Antibiotics) swelling Home Medications Medication Instructions Recorded Confirmed Type spironolactone 100 mg PO DAILY 10/22/21 01/25/22 History multivitamin 1 tablet PO DAILY 01/20/22 01/25/22 History Patient hx anesthesia problems: none Family hx anesthesia problems: none Results Review: All pre-operative results and documents have been reviewed as part of the pre-operative evaluation. [facility] Past Medical History Medical History Acne Acute pelvic inflammatory disease (PID) Hydrosalpinx Right ovarian cyst TOA (tubo-ovarian abscess) Surgical History Surgical History No pertinent past surgical history Family History Family History Father Hypertension Mother Hypertension Anxiety and depression Heart disease Grandparent Anxiety and depression Heart disease Cerebrovascular accident Thyroid disorder Grandparent Hypertension Thyroid disorder Social History Social History Smoking status: Never smoker Alcohol intake: never Substance use: never Substance use type: does not use Living arrangements: with family Spiritual care concerns: No Agree to blood products: Yes Anes - Eval Final PreProcedure Day of Procedure 01/25/22 11:58 Patient weight: overweight Heart: regular rate and rhythm Lungs: clear to auscultation Airway: Mallampati scale class II Neurological: alert and oriented Last oral intake: >/= 8 hours ASA classification: II Emergent: no Anesthetic plan: proceed Anesthesia type and monitoring: general ETT and standard monitoring Results Review: All pre-operative results and documents have been reviewed as part of the pre-operative evaluation. Informed Consent: The patient's anesthetic plan and its attendant risks and benefits were discussed with the patient/family/POA. Questions were solicited and answers provided to the satisfaction of the patient/family/POA.
[2022-01-25] MEDS: BUPIVACAINE/EPINEPHRINE 0.25% 10 ML VIAL 15 ML INFILTRATE (14:08)
[2022-01-25] MEDS: fentaNYL CITRATE INJ (*CRX) 100 MCG/2 ML VIAL 25 MCG IV PUSH (15:22)
[2022-01-25] MEDS: oxyCODONE HCL (*CRX) 5 MG TAB IR PO (16:31)
== END 2022-01-25 17:00 | disposition home or self-care (01) ==
PROVIDERS: Visit Provider Obstetrics & Gynecology
PROC: (CPT 49320; principal; 2022-01-25 12:00)
DX: N80.1 Endometriosis of ovary (principal); R10.2 Pelvic and perineal pain; N73.9 Female pelvic inflammatory disease, unspecified; R10.31 Right lower quadrant pain; N73.6 Female pelvic peritoneal adhesions (postinfective)
CPT/HCPCS: 58661; 88305; A9270; J1100; J1170; J1885; J2250; J2405; J2704; J2710; J3010; J7030; J7120

== ENCOUNTER 2022-04-03 08:24 | Emergency (ER) | payer BC, SELFPAY ==
[2022-04-03 08:33] VITALS: BP 142/98; PULSE 81; RESP 16; TEMP 36.8; O2SAT 99
--- NOTE | 2022-04-03 08:44 | ED.URI ---
HPI - URI/Sore Throat General Chief Complaint: Upper Respiratory Infection Stated Complaint: sore throat Time Seen by Provider: 04/03/22 08:35 Source: patient Mode of arrival: ambulatory Limitations: no limitations History of Present Illness HPI Narrative: Ms. Beasley is a 27-year-old female patient presenting to the clinic today with complaints of sore throat x1 to 2 days. She reports that she had strep throat approximately 2 months ago and was treated with a round of amoxicillin and this did not improve the sore throat so she was seen another provider and was prescribed some Augmentin and this took care of the sore throat however her left tonsil remains swollen. She noticed yesterday that her throat became painful and she developed pus pockets on her tonsils. She denies any fever or chills. She denies any known exposure to anyone with strep, flu, or COVID. She denies any cough or nasal congestion. MD elicited complaint: sore throat Related Data Allergies Allergy/AdvReac Type Severity Reaction Status Date / Time Sulfa (Sulfonamide Allergy Intermediate Rash, Verified 04/03/22 08:48 Antibiotics) swelling Review of Systems Review of Systems: Pertinent positives per HPI. Patient denies any fever, chills, rash, headache, visual changes, dizziness, cough, nasal congestion, shortness of breath, chest pain, palpitations, nausea, vomiting, diarrhea, constipation, abdominal pain, or any urinary issues. [facility] Past Medical History Medical History Acne Acute pelvic inflammatory disease (PID) Endometriosis Hydrosalpinx Right ovarian cyst TOA (tubo-ovarian abscess) Surgical History Surgical History History of oophorectomy 01/25/22, right ovary with extensive lysis of adhesions Family History Family History Father Hypertension Mother Hypertension Anxiety and depression Heart disease Grandparent Anxiety and depression Heart disease Cerebrovascular accident Thyroid disorder Grandparent Hypertension Thyroid disorder Social History Social History Smoking status: Never smoker Alcohol intake: never Substance use: never Substance use type: does not use Gender identity (if verbalized by the patient): Female Sexual Orientation (if Verbalized by the Patient): Straight or Heterosexual Spiritual care concerns: No Agree to blood products: Yes Comments At the time of my signature, I reviewed and agree with the nursing past medical, surgical, social, and family history. There is no relevant family history pertinent to the patient complaint. Exam Narrative: General: Well-developed, well nourished, in no apparent distress Head: Normocephalic, atraumatic Eyes: Pupils equally round and reactive to light bilaterally, EOM intact, sclera and conjunctive clear, no discharge, lids normal Ears: TMs intact and clear, ear canals clear, no drainage, grossly hearing normal. Nose: Nares patent, no discharge, no inflammation, no sinus tenderness. Mouth: Oral pharynx without lesions or masses, good dentition, MMM. 2+ tonsillar edema with white exudate to bilateral tonsils, oropharynx erythemic Neck: Supple, trachea midline, enlargement of anterior cervical nodes, no thyroid masses or goiter palpable. Cardio: Regular rate and rhythm, s1 and s2 normal, no murmur appreciated. Resp: Clear to auscultation bilaterally, no rhonchi, rales, wheezing or rubs Course Course Emergency Course: Portions of this record may have been created with voice recognition software. Level of Care: Express Care Visit Vital Signs Vital signs: Vital Signs Temperature 36.8 C 04/03/22 08:33 Pulse Rate 81 04/03/22 08:33 Respiratory Rate 16 04/03/22 08:33 Blood Pressure 142/98 H
== END 2022-04-03 09:20 | disposition home or self-care (01) ==
PROVIDERS: Emergency Provider Nurse Practitioner Family
DX: J03.90 Acute tonsillitis, unspecified (principal)
CPT/HCPCS: 36416; 86308; 87081; 87880; 99213; G0463

== ENCOUNTER 2023-07-25 08:14 | Emergency (ER) | payer SELFPAY ==
--- NOTE | 2023-07-25 08:18 | ED.URI ---
HPI - URI/Sore Throat General Chief Complaint: Headache Stated Complaint: Sinus/Headache Time Seen by Provider: 07/25/23 08:17 Source: patient Mode of arrival: ambulatory Limitations: no limitations History of Present Illness HPI Narrative: Sheri is a 28-year-old female patient presenting to the clinic today with complaints of sinus congestion and headache x1 week. She reports she has been taking some [id number] sinus medication, Excedrin migraine, as well as some liquid gel caps of Advil. Reports that this helps the headache momentarily but the headache does return. Rates pain 5/10 currently. Denies any fever or chills. MD elicited complaint: nasal congestion and sinus pain Related Data Allergies Allergy/AdvReac Type Severity Reaction Status Date / Time Sulfa (Sulfonamide Allergy Intermediate Rash, Verified 04/03/22 08:48 Antibiotics) swelling Review of Systems Review of Systems: Pertinent positives per HPI. Patient denies any fever, chills, rash, visual changes, dizziness, shortness of breath, chest pain, palpitations, nausea, vomiting, diarrhea, constipation, abdominal pain, or any urinary issues. [facility] Past Medical History Medical History Acne Acute pelvic inflammatory disease (PID) Endometriosis Hydrosalpinx Right ovarian cyst TOA (tubo-ovarian abscess) Surgical History Surgical History History of oophorectomy 01/25/22, right ovary with extensive lysis of adhesions Family History Family History Father Hypertension Mother Hypertension Anxiety and depression Heart disease Grandparent Anxiety and depression Heart disease Cerebrovascular accident Thyroid disorder Grandparent Hypertension Thyroid disorder Social History Social History Smoking status: Never smoker Alcohol intake: never Substance use: never Substance use type: does not use Living arrangements: with family Gender identity (if verbalized by the patient): Female Sexual Orientation (if Verbalized by the Patient): Straight or Heterosexual Spiritual care concerns: No Agree to blood products: Yes Comments At the time of my signature, I reviewed and agree with the nursing past medical, surgical, social, and family history. There is no relevant family history pertinent to the patient complaint. Exam Narrative: General: Well-developed, well nourished, in no apparent distress Head: Normocephalic, atraumatic Eyes: Pupils equally round and reactive to light bilaterally, EOM intact, sclera and conjunctive clear, no discharge, lids normal Ears: TMs intact and clear, ear canals clear, no drainage, grossly hearing normal. Nose: Nares patent, clear nasal discharge, moderate inflammation, no sinus tenderness. Mouth: Oropharynx red with bilateral tonsillar enlargement without lesions or masses, good dentition, MMM. Neck: Supple, trachea midline, enlargement of anterior cervical nodes, no thyroid masses or goiter palpable. Cardio: Regular rate and rhythm, s1 and s2 normal, no murmur appreciated. Resp: Clear to auscultation bilaterally anteriorly and posteriorly, no rhonchi, rales, wheezing or rubs Course Course Emergency Course: Portions of this record may have been created with voice recognition software. Level of Care: Express Care Visit Vital Signs Vital signs: Vital Signs Temperature 36.5 C 07/25/23 08:28 Pulse Rate 84 07/25/23 08:28 Respiratory Rate 16 07/25/23 08:28 Blood Pressure 147/92 H 07/25/23 08:28 Pulse Oximetry 100 07/25/23 08:28 Oxygen Delivery Room Air 07/25/23 08:28 Temperature 36.5 C 07/25/23 08:28 Pulse Rate 84 07/25/23 08:28 Respiratory Rate 16 07/25/23 08:28 Blood Pressure 147/92 H 07/25/23 0
[2023-07-25 08:28] VITALS: BP 147/92; PULSE 84; RESP 16; TEMP 36.5; O2SAT 100
== END 2023-07-25 09:00 | disposition home or self-care (01) ==
PROVIDERS: Emergency Provider Nurse Practitioner Family
DX: J02.0 Streptococcal pharyngitis (principal); N80.9 Endometriosis, unspecified
CPT/HCPCS: 87880; 99213; G0463

== ENCOUNTER 2023-09-07 12:51 | Emergency (ER) | payer OTHER, SELFPAY ==
[2023-09-07 13:06] VITALS: BP 138/87; PULSE 84; RESP 16; TEMP 37; O2SAT 99
--- NOTE | 2023-09-07 13:17 | ED.URI ---
HPI - URI/Sore Throat General Chief Complaint: Upper Respiratory Infection Stated Complaint: Left Ear/Sore Throat Time Seen by Provider: 09/07/23 13:17 Source: patient Mode of arrival: ambulatory Limitations: no limitations History of Present Illness HPI Narrative: 28-year-old female presents with complaint of right ear pain, sore throat, right tonsil swelling and runny nose from right narrow for 3 days. Afebrile. Denies fatigue, body aches. Not taking any [id number] meds to treat her symptoms. All systems reviewed and negative except as noted above. Related Data Allergies Allergy/AdvReac Type Severity Reaction Status Date / Time Sulfa (Sulfonamide Allergy Intermediate Rash, Verified 04/03/22 08:48 Antibiotics) swelling Review of Systems Review of Systems: CONSTITUTIONAL: Denies fever, chills, or sweats. EYES: Denies visual changes, redness, or discharge. ENT: Denies rhinorrhea, congestion, Reports right ear pain sore throat. CARDIOVASCULAR: Denies chest pain, palpitations, or edema. RESPIRATORY: Denies cough or dyspnea. GASTROINTESTINAL: Denies abdominal pain, nausea, vomiting, or diarrhea. GENITOURINARY: Denies dysuria or hematuria. SKIN: Denies rash or itching. MUSCULOSKELETAL: Denies back pain, joint pain, or myalgia. NEUROLOGIC: Denies headache, numbness, or weakness. PSYCHIATRIC: Denies anxiety or depression. All other systems reviewed are negative, except as documented in HPI. [facility] Past Medical History Medical History Acne Acute pelvic inflammatory disease (PID) Endometriosis Hydrosalpinx Right ovarian cyst TOA (tubo-ovarian abscess) Surgical History Surgical History History of oophorectomy 01/25/22, right ovary with extensive lysis of adhesions Family History Family History Father Hypertension Mother Hypertension Anxiety and depression Heart disease Grandparent Anxiety and depression Heart disease Cerebrovascular accident Thyroid disorder Grandparent Hypertension Thyroid disorder Social History Social History Smoking status: Never smoker Alcohol intake: never Substance use: never Substance use type: does not use Living arrangements: with family Gender identity (if verbalized by the patient): Female Sexual Orientation (if Verbalized by the Patient): Straight or Heterosexual Spiritual care concerns: No Agree to blood products: Yes Comments At time of signature, agree with nursing past medical, surgical, social and family history. There is no relevant family history pertinent to the presenting complaint. Exam Narrative: GENERAL: This is a well-nourished, well-developed patient, in no apparent distress. HEAD: normocephalic, atraumatic. EYES: PERRL. Sclera clear/white. Vision is grossly intact. EARS: External ears normal, auditory canals clear and without drainage, Right TM is erythematous and retracted. NOSE: External nose normal with no obvious nasal discharge, nares without redness, no rhinorrhea. THROAT: Mucous membranes moist, Erythema, tonsils 2+ bilaterally. NECK: Neck supple, non-tender without lymphadenopathy, masses or thyromegaly. CARDIOVASCULAR: Regular rate and rhythm without murmurs, gallops, or rubs. RESPIRATORY: Clear to auscultation. Breath sounds equal bilaterally. No wheezes, rales, or rhonchi. SKIN: warm, Dry, intact with no suspicious lesions or rash, good texture and turgor. NEURO: awake, alert, and oriented to person, place and time. There were no obvious focal neurologic abnormalities. EXTREMITIES: No joint tenderness, effusion, or edema noted. Course Course Level of Care: Express Care Visit Vital Signs Vital signs: Vital Signs Temperature 37.0 C 09/07/23 1
== END 2023-09-07 13:30 | disposition home or self-care (01) ==
PROVIDERS: Emergency Provider Nurse Practitioner Family
DX: H66.91 Otitis media, unspecified, right ear (principal); J03.90 Acute tonsillitis, unspecified; N80.9 Endometriosis, unspecified
CPT/HCPCS: 87081; 87880; 99213; G0463

== ENCOUNTER 2023-10-12 09:11 | Emergency (ER) | payer OTHER, SELFPAY ==
[2023-10-12 09:15] VITALS: BP 154/93; PULSE 85; RESP 14; TEMP 36.6; O2SAT 100
--- NOTE | 2023-10-12 09:35 | ED.URI ---
HPI - URI/Sore Throat General Chief Complaint: Upper Respiratory Infection Stated Complaint: Sore Throat Time Seen by Provider: 10/12/23 09:27 Source: patient and RN notes reviewed Mode of arrival: ambulatory Limitations: no limitations History of Present Illness HPI Narrative: Patient presents today complaining of a one-week history of body aches, chills, fever, sore throat. Sore throat has worsened over the past 2 days. Denies shortness of breath or difficulty swallowing. She currently rates her pain 4/10 and has been taking DayQuil and ibuprofen with mild relief. States her sister has been ill recently, and she does also work at a hospital. Patient was on a course of amoxicillin last month for otitis media Related Data Allergies Allergy/AdvReac Type Severity Reaction Status Date / Time Sulfa (Sulfonamide Allergy Intermediate Rash, Verified 10/12/23 09:16 Antibiotics) swelling Review of Systems Review of Systems: CONSTITUTIONAL: + body aches, chills, fever EYES: Denies visual changes, redness, or discharge. ENT: Denies rhinorrhea, congestion, or otalgia.+ sore throat CARDIOVASCULAR: Denies chest pain, palpitations, or edema. RESPIRATORY: Denies cough or dyspnea. GASTROINTESTINAL: Denies abdominal pain, nausea, vomiting, or diarrhea. GENITOURINARY: Denies dysuria or hematuria. SKIN: Denies rash, itching, or wounds. MUSCULOSKELETAL: Denies back pain, joint pain, or myalgia. NEUROLOGIC: Denies headache, numbness, tingling, or weakness. PSYCH: Denies depression or anxiety. [facility] Past Medical History Medical History Acne Acute pelvic inflammatory disease (PID) Endometriosis Hydrosalpinx Right ovarian cyst TOA (tubo-ovarian abscess) Surgical History Surgical History History of oophorectomy 01/25/22, right ovary with extensive lysis of adhesions Family History Family History Father Hypertension Mother Hypertension Anxiety and depression Heart disease Grandparent Anxiety and depression Heart disease Cerebrovascular accident Thyroid disorder Grandparent Hypertension Thyroid disorder Social History Social History Smoking status: Never smoker Alcohol intake: never Substance use: never Substance use type: does not use Living arrangements: with family Gender identity (if verbalized by the patient): Female Sexual Orientation (if Verbalized by the Patient): Straight or Heterosexual Spiritual care concerns: No Agree to blood products: Yes Comments At time of signature, I have reviewed and agree with nursing past medical, surgical, social and family history unless otherwise noted. Please see nursing chart for further information. There is no relevant family history pertinent to the presenting complaint Exam Narrative: GENERAL: Well-appearing, well-nourished, and in no acute distress. HEAD: Normocephalic, atraumatic. EYES: EOMI. No redness or drainage. Conjunctivae normal. ENT: Mucous membranes pink and moist. Nares clear. No rhinorrhea. TMs normal bilaterally. Throat erythematous and edematous. Tonsils 3+ with white exudate. Uvula midline. NECK: Normal AROM. Supple. Bilateral tonsillar lymphadenopathy. CHEST: No respiratory distress. Clear to auscultation. HEART: Regular rate and rhythm. No murmur appreciated. EXTREMITIES: Normal range of motion. No edema. SKIN: Warm, dry, no rash. Capillary refill normal. Normal skin turgor. NEURO: No focal deficits. Alert and oriented x3. Gait steady. PSYCH: Normal affect. No signs of depression or anxiety. Course Course Level of Care: Express Care Visit Vital Signs Vital signs: Vital Signs Temperature 97.9 F 10/12/23 09:15 Pulse Rate 85 10/12/23 09:15 Respiratory Ra
== END 2023-10-12 09:42 | disposition home or self-care (01) ==
PROVIDERS: Emergency Provider Nurse Practitioner
DX: J02.0 Streptococcal pharyngitis (principal)
CPT/HCPCS: 87880; 99213; G0463

== ENCOUNTER 2023-10-15 15:29 | Emergency (ER) | payer OTHER, SELFPAY ==
[2023-10-15 15:46] VITALS: BP 134/72; PULSE 87; RESP 16; TEMP 36.4; O2SAT 99
--- NOTE | 2023-10-15 15:52 | ED.URI ---
HPI - URI/Sore Throat General Chief Complaint: Upper Respiratory Infection Stated Complaint: SWOLLEN TONSILS S/P + STREP THROAT Time Seen by Provider: 10/15/23 15:59 History of Present Illness HPI Narrative: 28 y/o female tested positive for strep 3 days ago, presented for no improvement in throat pain and feels like tonsils are more swollen. Patient started cephalexin as directed, as she had taken amox the previous month for ear infection. Denies difficulty maintaining secretions. Denies sob, abdominal pain, vomiting, or fever. Related Data Allergies Allergy/AdvReac Type Severity Reaction Status Date / Time Sulfa (Sulfonamide Allergy Intermediate Rash, Verified 10/12/23 09:16 Antibiotics) swelling Review of Systems Review of Systems: CONSTITUTIONAL: Denies body aches, fever, chills, or sweats. EYES: Denies visual changes, redness, or discharge. ENT: Reports sore throat denies rhinorrhea, congestion, or otalgia. CARDIOVASCULAR: Denies chest pain, palpitations, or edema. RESPIRATORY: Denies dyspnea. GASTROINTESTINAL: Denies abdominal pain, nausea, vomiting, or diarrhea. SKIN: Denies rash, itching, or wounds. MUSCULOSKELETAL: Denies back pain, joint pain, or myalgia. NEUROLOGIC: Denies headache PMFSH Past Medical History Medical History Acne Acute pelvic inflammatory disease (PID) Endometriosis Hydrosalpinx Right ovarian cyst TOA (tubo-ovarian abscess) Surgical History Surgical History History of oophorectomy 01/25/22, right ovary with extensive lysis of adhesions Family History Family History Father Hypertension Mother Hypertension Anxiety and depression Heart disease Grandparent Anxiety and depression Heart disease Cerebrovascular accident Thyroid disorder Grandparent Hypertension Thyroid disorder Social History Social History Smoking status: Never smoker Alcohol intake: never Substance use: never Substance use type: does not use Living arrangements: with family Gender identity (if verbalized by the patient): Female Sexual Orientation (if Verbalized by the Patient): Straight or Heterosexual Spiritual care concerns: No Agree to blood products: Yes Exam Narrative: GENERAL: well-appearing, no acute distress. EYES: conjunctivae clear ENT: Mucous membranes moist. TMs pearly farfan with normal light reflex bilaterally; no tragal tenderness. Oropharynx mildly erythematous without lesions. Tonsils enlarged 4+ with exudate. Mild hoarse voice. No drooling, no trismus, uvula midline. No tripod positioning, hot potato voice, or soft palate swelling. NECK: Supple. No lymphadenopathy or induration below mandible CHEST: Clear to auscultation, breath sounds equal. No respiratory distress, speaks in full sentences. HEART: Regular rate and rhythm. No murmur heard. SKIN: Warm, dry, no rash. NEURO: Alert and oriented x3. Course Course Emergency Course: Patient is aware of diagnosis, understands and agrees to treatment plan. Anticipatory guidance given. Patient agrees to follow-up as directed and is aware of reasons to seek care at the emergency department. Portions of this record may have been created with voice recognition software Level of Care: Express Care Visit Vital Signs Vital signs: Vital Signs Temperature 97.5 F L 10/15/23 15:46 Pulse Rate 87 10/15/23 15:46 Respiratory Rate 16 10/15/23 15:46 Blood Pressure 134/72 10/15/23 15:46 Pulse Oximetry 99 10/15/23 15:46 Temperature 97.5 F L 10/15/23 15:46 Pulse Rate 87 10/15/23 15:46 Respiratory Rate 16 10/15/23 15:46 Blood Pressure 134/72 10/15/23 15:46 Pulse Oximetry 99 10/15/23 15:46 MDM - URI/Sore Throat MDM Narrative Medical decision making meenu
[2023-10-15] MEDS: methylPREDNISolone SOD SUCC 125 MG VIAL IM (16:14)
== END 2023-10-15 16:40 | disposition home or self-care (01) ==
PROVIDERS: Emergency Provider Nurse Practitioner Family
DX: J02.0 Streptococcal pharyngitis (principal); N80.9 Endometriosis, unspecified
CPT/HCPCS: 96372; 99213; G0463; J2930